=== PATIENT | female | born 1965 | race Two or more races ===

== ENCOUNTER 2017-04-11 19:55 | Emergency (ER) | payer OTHER ==
[~2017-04-11] VITALS: Ht 152.4 cm; Wt 74.1 kg
[2017-04-11 21:29] LABS: PATH.CAST-FLAG NOT PRESENT; SPERM-FLAG NOT PRESENT; SRC-FLAG NOT PRESENT; XTAL-FLAG NOT PRESENT; YLC-FLAG NOT PRESENT
[2017-04-11] MEDS ORDERED: SODIUM CHLORIDE 0.9% 1,000ML IVBOLUS ONE (21:30)
[2017-04-11 21:31] LABS: HCG UR OBC PASS
[2017-04-11 22:09] LABS: BLOOD UREA NITROGEN 15 mg/dL (7-18)
[2017-04-11 22:15] LABS: IS PT STATUS REG ER OR PRE ER? YES
[2017-04-11 22:30] VITALS: BP 125/78
== END 2017-04-11 23:05 | disposition home or self-care (01) ==
LOC: ED 22:12
DX: R55 Syncope and collapse (principal); R07.89 Other chest pain; R42 Dizziness and giddiness
CPT/HCPCS: 36415; 71010; 80048; 81001; 81025; 82040; 83735; 84443; 84484; 85025; 87086; 93005; 99285